=== PATIENT | male | born 1990 | race Caucasian/White ===

== ENCOUNTER 2017-12-06 10:33 | Emergency (ER) | payer MEDICAID ==
[2017-12-06] MEDS: LORAZEPAM 2 MG INJ IM ×2 (11:28→11:29)
[2017-12-06 14:48] LABS: AMPHETAMINE/METHAMPHETAMINE Negative (NEGATIVE); BARBITURATES Negative (NEGATIVE); BENZODIAZEPINES Negative (NEGATIVE); CANNABINOIDS Positive (NEGATIVE); COCAINE Negative (NEGATIVE); OPIATES Negative (NEGATIVE)
== END 2017-12-06 14:19 | disposition home or self-care (01) ==
LOC: E/R 14:19
DX: F15.10 Other stimulant abuse, uncomplicated (principal); G47.00 Insomnia, unspecified; F17.210 Nicotine dependence, cigarettes, uncomplicated
CPT/HCPCS: 80307; 96372; 99284-25